=== PATIENT | male | born 1985 | race Caucasian/White ===

== ENCOUNTER → 2018-09-28 | Outpatient (CLI) | payer OTHER ==
[~2018-09-28] MED LIST: ADVAIR 250/501 EA INH; ALBUTEROL0.09 MG/A2 IH; NKHM; ULTRAM50 MG PO
== END | disposition home or self-care (01) ==
LOC: CT 09-27 08:00
DX: S90.31XD Contusion of right foot, subsequent encounter (principal); S97.81XD Crushing injury of right foot, subsequent encounter; M19.071 Primary osteoarthritis, right ankle and foot; M85.89 Other specified disorders of bone density and structure, multiple sites; X58.XXXD Exposure to other specified factors, subsequent encounter

== ENCOUNTER 2019-06-26 15:40 | Emergency (ER) | payer OTHER ==
[~2019-06-26] VITALS: Ht 182.8 cm; Wt 86.2 kg
== END 2019-06-26 17:02 | disposition home or self-care (01) ==
LOC: ED 15:40
DX: S01.01XA Laceration without foreign body of scalp, initial encounter (principal); J45.909 Unspecified asthma, uncomplicated; Z79.899 Other long term (current) drug therapy; W22.8XXA Striking against or struck by other objects, initial encounter; Y93.89 Activity, other specified; Y92.89 Other specified places as the place of occurrence of the external cause; Y99.8 Other external cause status

== ENCOUNTER → 2020-01-07 | Outpatient (CLI) | payer OTHER | LOC: CT 10:00 | PROVIDERS: ATTEND Orthopaedic Surgery | DX: M19.071 Primary osteoarthritis, right ankle and foot (principal); Z98.1 Arthrodesis status ==

== ENCOUNTER → 2020-07-16 | Outpatient (CLI) | payer OTHER ==
[2020-07-16 17:04] LABS: BASO # 0.1 10*3/uL (0.0-0.1); BASO % 0.7 % (0.0-1.0); EOS # 0.3 10*3/uL (0.0-0.4); EOS % 4.5 % (1.0-4.0); LYMPH # 1.5 10*3/uL (1.3-4.4); LYMPH % 22.6 % (27.0-41.0); MEAN CELL VOLUME 91.1 fl (80.0-94.0); MEAN CORPUSCULAR HGB 31.2 pg (27.0-31.0); MEAN CORPUSCULAR HGB CONC 34.3 g/dl (33.0-37.0); MEAN PLATELET VOLUME 11.3 fl (9.6-12.3); MONO # 0.4 10*3/uL (0.1-1.0); NEUT # 4.4 10*3/uL (2.3-7.9); NEUT % 66.1 % (47.0-73.0); PLATELET COUNT AUTOMATED 229 10*3/uL (130-400); RED BLOOD COUNT 5.16 10*6/uL (4.50-5.90); RED CELL DISTRI WIDTH 12.3 % (0-14.5); RETICULOCYTE % 1.68 % (0.50-2.50); WHITE BLOOD COUNT 6.7 10*3/uL (4.8-10.8)
[2020-07-16 17:22] LABS: BILIRUBIN Negative (Negative); BLOOD Negative (Negative); CLARITY Clear (Clear); COLOR Yellow (Yellow); GLUCOSE Negative (Negative); KETONE Negative (Negative); LEUKO ESTERASE Negative (Negative); NITRITE Negative (Negative); UROBILINOGEN 0.2 E.U./dl (0.0-1.0)
[2020-07-16 17:35] LABS: MUCOUS 1+; WBC 0-2 wbc/hpf (0-5)
[2020-07-16 17:36] LABS: ALBUMIN 4.2 gm/dl (3.1-4.5); BUN 11 mg/dl (7-24); CHLORIDE 104 mmol/L (98-107); CHOLESTEROL 142 mg/dL (<200); CREATININE 1.27 mg/dL (0.70-1.30); GAMMA GLUTAMYL TRANSPEPTIDASE 26 U/L (15-85); IRON 87 ug/dL (65-175); POTASSIUM 3.6 mmol/L (3.5-5.1); SGOT/AST 23 IU/L (3-35); SGPT/ALT 57 U/L (12-78); SODIUM 137 mmol/L (136-145); TRIGLYCERIDES 157 mg/dl (<150); URIC ACID 4.8 mg/dL (3.5-7.2)
[2020-07-16 17:45] LABS: ALKALINE PHOSPHATASE 76 U/L (45-117); LDL CHOLESTEROL 65 mg/dL (9-159); TOTAL IRON BINDING CAPACITY 295 ug/dl (250-450); TOTAL PROTEIN 7.8 gm/dL (6.4-8.2)
[2020-07-16 18:36] LABS: FERRITIN 100.3 ng/mL (22.0-322.0); VITAMIN D, 25-HYDROXY 31.1 ng/mL (30-100)
[2020-07-17 11:07] LABS: RHEUMATOID ARTHRITIS FACTOR 26.8 IU/mL (0.0-13.9)
[2020-07-17 16:07] LABS: ANTI-DSDNA ANTIBODIES <1 IU/mL (0-9)
== END | disposition home or self-care (01) ==
LOC: LAB 16:31
PROVIDERS: ATTEND Family Medicine
DX: E55.9 Vitamin D deficiency, unspecified (principal); R79.89 Other specified abnormal findings of blood chemistry; R53.83 Other fatigue; E78.5 Hyperlipidemia, unspecified

== ENCOUNTER 2023-08-18 13:49 | Emergency (ER) | payer BC ==
[~2023-08-18] VITALS: Ht 182.8 cm; Wt 93.0 kg
[2023-08-18] MEDS ORDERED: Tdap Vaccine 0.5 ML SYR (Adult Vaccine) IM ONE (14:25)
[2023-08-18] MEDS ORDERED: Bacitracin Zinc 14 GM TUBE T ONE (14:25)
== END 2023-08-18 14:41 | disposition home or self-care (01) ==
LOC: ED 13:49
DX: S00.01XA Abrasion of scalp, initial encounter (principal); S08.0XXA Avulsion of scalp, initial encounter; J45.909 Unspecified asthma, uncomplicated; W22.8XXA Striking against or struck by other objects, initial encounter; Y93.89 Activity, other specified; Y92.89 Other specified places as the place of occurrence of the external cause; Y99.8 Other external cause status